=== PATIENT | male | born 1945 | race Caucasian/White ===

== ENCOUNTER 2016-12-17 01:52 | Day surgery (SDC) | payer OTHER ==
[~2016-12-17] VITALS: Ht 167.6 cm; Wt 83.6 kg
[2016-12-17] VITALS (14 sets, daily range): BP systolic 132–170; BP diastolic 56–130; PULSE 63–80; RESP 12–18; O2SAT 98
[~2016-12-17 01:52] MED LIST: ATOR40TA69 PO; CARV6.252 PO; DOCU-41 PO; FURO40TA4 PO; LISI-567 PO; SILD100T PO; SPIR25TA3 PO; WARF1TAB6 PO; WARF7.5T4 PO
[2016-12-17 08:32] LABS: BASOPHILS % (AUTO) 1.1 % (0-3); MONOCYTES % (AUTO) 12.1 % (4-12); Mean Corpuscular Hemoglobin 30.9 pg (27.0-35.0); Mean Corpuscular Volume 91.6 fL (81-100); NEUTROPHILS % (AUTO) 58.7 % (40-74); Platelet Count 195 bil/L (150-400)
[2016-12-17 08:46] LABS: INR 1.01 ratio
[2016-12-17] MEDS ORDERED: Heparin 10,000 Unit/1,000 mL NS Premix IV ONE (08:51)
[2016-12-17] MEDS ORDERED: Heparin 1,000 Unit/mL 10 mL Inj ONE (08:51)
[2016-12-17] MEDS ORDERED: Heparin 1,000 Units/500 mL NS Premix IV ONE (08:51)
[2016-12-17] MEDS ORDERED: Nitroglycerin 50,000 mcg/250 mL D5W Premix IV ONE (08:51)
[2016-12-17] MEDS ORDERED: fentaNYL-PF 50 mCg/mL 2 mL Inj ONE (09:40)
--- NOTE | 2016-12-17 11:39 | PCM.CVCATH ---
Cardiac Cath Report Date of Service Dec 17, 2016 Primary Indication Heart Failure. history of acute inferolateral RI in 2007 treated with 4V CABG. Procedure coronary angiography, left heart cath Vascular Access Right femoral artery using 5 Fr sheath, closure with manual hold. Diagnostic Catheters Left main: JL 4.0, 5 Fr RCA: JL 4.0, 5 Fr SVG grafts: JL4, 5Fr BUITRAGO graft: CARMEN, 5Fr Procedure Details Coronary angiography details: The patient was brought to the cardiac catheterization lab in the fasting state. Patient was laid supine on the cardiac catheterization table and the right groin was prepped and draped in the usual sterile fashion. One percent Xylocaine was infiltrated into the right femoral vessels. Next, a sheath was then placed in the right common femoral artery by the modified Seldinger technique. Guide wire was used to advance the catheter through the sheath and up into aortic sinuses. After coronary angiography and venous bypass grafts angiography were completed, the JR4 catheter was pulled into the aortic arch. Multiple attempts were made using the guide wire to find the subclavian artery but they failed. Vert catheter was then used to advance the guidewire into the subclavian artery and catheter was exchanged with JR4 catheter. JR4 catheter didn't engage the BUITRAGO graft and the catheter was exchanged for CARMEN catheter that successfully engaged the BUITRAGO graft. The J tip guide wire was advanced through the catheter ahead of the tip of the catheter and the guide wire along with the catheter were pulled together out of the sheath. Medications/Fluoro Time Medications administered: 1.Fentanyl: 50 mcg IV 2. Midazolam: 1 mg IV 3. Heparin: 3000 units IV Fluoroscopy Time: 22.5 minutes, 1105 mGy Contrast (Isovue): 90 mls Blood loss: 10 mls Findings 1) Coronary angiography: Right dominance a. Left main has ostial 20-25% stenosis b. LAD is normal caliber with 70% tubular stenosis proximally. There is a medium caliber first diagonal artery that has 80-85% tubular stenosis proximally. Competitive flow into the BUITRAGO is noted. c. LCx is normal caliber with 80-85% tubular stenosis proximally. The first obtuse marginal artery (OM1) has 60-70% stenosis. Retrograde filling of the SVG graft stub is noted from OM1. The OM2 branch has subtotal occlusion/ chronic total occlusion in the mid-vessel. d. RCA has chronic total occlusion proximally and LETICIA 1-2 flow in the mid vessel. There are left to right collaterals present. 2) Bypass angiography: a. BUITRAGO to the LAD is patent and without any significant angiographic disease. b. SVG to OM1 is occluded at the ostium c. SVG to OM2 is occluded proximally d. SVG to RCA is occluded at the ostium/proximally 3) Left Heart catheterization: a. LVEDP is minimally elevated at 16 mmHg. b. No significant transaortic gradient on catheter pull-back. 4) Right femoral artery angiography: right common femoral arteriotomy below the inferior hypogastric artery. Moderate luminal disease in the common femoral artery. Complications There were no periprocedural complications identified. Summary 1) Five vessel hoopa coronary artery disease (LAD, 1st diagonal, OM1, LCx, OM2 , RCA) present that appears similar to mildly worse than the disease noted on cath report 2006. 2) Bypass angiography: BUITRAGO graft is patent but all the three saphenous venous grafts are occluded. Recommendations Cardiac MRI to assess viability in the inferior and lateral collado and then consider PCI of the first diagonal and LCx and higher risk PCI of the OM2 and RCA. copies to: Stefanie Black MD, Bhrigu R MD Dec 17, 2016 11:39
--- NOTE | 2016-12-17 17:04 | NUR ---
Continued recovery of patient later this afternoon, following Jacobo Dahl RN earlier care. Heart cath recovery completed post 5 hour stay following a manual hold on the right femoral artery. Dressing was changed prior to D/C -for a very light ooze - site is soft and non-tender - site covered with a clear Opsite. Pt and understand discharge instructions. Office will contact patient for an cardiac MRI. Follow up scheduled with Dr Alcantar in Feb.
== END 2016-12-17 23:59 | disposition home or self-care (01) ==
LOC: SOUO 01:52
PROVIDERS: ATTEND Internal Medicine Cardiovascular Disease
DX: I50.20 Unspecified systolic (congestive) heart failure (principal); I25.810 Atherosclerosis of coronary artery bypass graft(s) without angina pectoris; I25.10 Atherosclerotic heart disease of native coronary artery without angina pectoris; Z95.1 Presence of aortocoronary bypass graft; I48.1 Persistent atrial fibrillation; I25.5 Ischemic cardiomyopathy; I10 Essential (primary) hypertension; E78.5 Hyperlipidemia, unspecified; Z79.01 Long term (current) use of anticoagulants; Z79.82 Long term (current) use of aspirin; I25.2 Old myocardial infarction
CPT/HCPCS: 36415; 80048; 80061; 85025; 85610; 93459; 99152; 99153; C1769; J1644; J2250; J3010; Q9967

== ENCOUNTER 2017-01-09 01:45 | Day surgery (SDC) | payer OTHER ==
[~2017-01-09] VITALS: Ht 167.6 cm; Wt 83.6 kg
[2017-01-09] VITALS (15 sets, daily range): BP systolic 141–188; BP diastolic 89–126; PULSE 58–86; RESP 12–24; O2SAT 94–98
[2017-01-09] MEDS ORDERED: 0.9% Sodium Chloride 1,000 ML IV SCH (06:30)
[2017-01-09 07:16] LABS: BASOPHILS % (AUTO) 1.1 % (0-3); EOSINOPHILS % (AUTO) 3.6 % (0-5); MONOCYTES % (AUTO) 12.2 % (4-12); Mean Corpuscular Volume 90.9 fL (81-100); Platelet Count 228 bil/L (150-400)
[2017-01-09 07:28] LABS: INR 1.04 ratio
[2017-01-09] MEDS ORDERED: Nitroglycerin 50,000 mcg/250 mL D5W Premix IV ONE (07:51)
[2017-01-09] MEDS ORDERED: Heparin 10,000 Unit/1,000 mL NS Premix IV ONE (07:51)
[2017-01-09] MEDS ORDERED: Heparin 1,000 Units/500 mL NS Premix IV ONE (07:51)
[2017-01-09] MEDS ORDERED: ASPI-973 PO (07:54)
[2017-01-09] MEDS ORDERED: Heparin 1,000 Unit/mL 10 mL Inj ONE (08:08)
--- NOTE | 2017-01-09 08:21 | NUR ---
DUNIA: Pt arrived to [facility] around 0640 for heart cath. IV X2 started, one in each hand, blood drawn and sent to lab per orders. IVF started per order. Afebrile, tele afib, BP elevated, pt states he gets "nervous" in hospital setting. at bedside. Both and pt state understanding of procedure and post procedure care. Taken to geophysical laboratory supervisor at 0820 for procedure in bed per geophysical laboratory supervisor staff.
[2017-01-09] MEDS ORDERED: fentaNYL-PF 50 mCg/mL 2 mL Inj ONE (08:27)
[2017-01-09] MEDS ORDERED: Atropine 1 mg/10 mL (Code) Syringe ONE (08:43)
[2017-01-09] MEDS ORDERED: Adenosine Inj 40 ML IV ONE (09:02)
[2017-01-09] MEDS ORDERED: 0.9% Sodium Chloride 100 ML ONE (09:03)
--- NOTE | 2017-01-09 10:10 | DI95 ---
[place] [id number] INTERVENTIONAL CARDIAC CATHETERIZATION PATIENT: WILL LOPEZ : 1945 MR#: [id number] ADMIT: 01/09/2017 JOB ID: [id number] DATE OF PROCEDURE: 01/09/2017 PATIENT PROFILE: The patient is a 71 years old male with history of coronary artery bypass surgery x5 in 2006 with all 4 saphenous vein grafts occluded. He has ischemic cardiomyopathy with ejection fraction of 25% to 30%. Recent viability testing demonstrated lateral ischemia. PROCEDURE: 1. Balloon angioplasty and stenting to the proximal circumflex artery. 2. Balloon angioplasty and stenting to the first diagonal branch. 3. Fractional flow reserve to the ramus intermedius. 4. Vascular closure device, Perclose. COMPLICATIONS: None. METHOD: Vascular access was obtained from the right groin under 1% lidocaine local anesthesia using a 6-Monegasque sheath. Heparin 9,000 units were given. A 6-Monegasque CLS 4 guide was advanced to the left coronary ostium. A run-through wire was placed inside the circumflex artery. The proximal circumflex artery lesion was pre-dilated with a 2.0 x 12 mm balloon. A Resolute Integrity 2.5 x 12 mm stent was placed inside the circumflex artery lesion and deployed at 12 atmospheres for 20 seconds. The run-through wire was then redirected into the first diagonal branch. The first diagonal branch lesion was pre-dilated with a 2.5 x 15 mm balloon. An NC 2.5 x 12 mm balloon was used to dilate this lesion. It was inflated up to 12 atmospheres. A Xience 2.5 x 15 mm stent was placed inside the diagonal branch lesion and deployed at 10 atmospheres for 30 seconds. An FFR wire was directed into the ramus intermedius. Adenosine was given infusion IV. FFR was measured at 0.92. Final angiogram was obtained. Right femoral angiogram was performed before sheath removal, hemostasis was achieved by using a Perclose device. The patient tolerated the procedure well. He was transferred to the [facility] in good condition. TOTAL CONTRAST USED: 85 cc. FLUOROSCOPY TIME: 5.5 minutes. RESULTS: 1. Successful balloon angioplasty and stenting to the proximal circumflex artery lesion by deploying one drug eluting stent (2.5 x 12 mm) to achieve an excellent angiographic result with LETICIA-3 flow distally. 2. Successful balloon angioplasty and stenting to the first diagonal branch lesion by deploying one drug eluting stent (2.5 x 15 mm) to achieve an excellent angiographic result with LETICIA-3 flow distally. 3. FFR of the ramus intermedius 0.92, which indicates nonhemodynamic significant stenosis. MTDD
[2017-01-09] MEDS ORDERED: Ondansetron 2 mg/mL 2 mL Inj IVPUSH PRN (10:50)
[2017-01-09] MEDS ORDERED: Atropine 1 mg/10 mL (Code) Syringe IVPUSH PRN (10:50)
[2017-01-09] MEDS ORDERED: 0.9% Sodium Chloride 400 ML (4 HRS) IV ONE (10:50)
[2017-01-09] MEDS ORDERED: Sodium Chloride LOK Flush 10 mL Syringe IVFLUSH PRN (10:50)
[2017-01-09] MEDS ORDERED: 0.9% Sodium Chloride 250 ML BOLUS IV PRN (10:50)
[2017-01-09] MEDS ORDERED: ATOR40TA69 PO (11:26)
[2017-01-09] MEDS ORDERED: CARV6.252 PO (11:26)
--- NOTE | 2017-01-09 11:30 | NUR ---
Post Cath: Pt arrived back to [facility] room 3 from medical laboratory manager at 0940, VSS on RA SpO2 94-98%. No c/o pain. ECG obtained, afib, IVF at 100 ml/hr per order. R groin with perclose with op-site dressing, no bleeding or hematoma, R pedal pulse palpable +1. at bedside and spoke with provider about procedure. Pt tolerating po intake free of nausea. Jessica Kunz RN given report and to assume care of pt. Addendum: 01/09/17 at 1143 by SIMON NORWOOD RN Small area of firmness in right groin present upon arrival from medical laboratory manager, per medical laboratory manager staff has been present, area has not changed during time in [facility], no pain at site per pt. Left groin has similar anatomy.
--- NOTE | 2017-01-09 11:36 | NUR ---
Care of patient assumed from Ari Whiting R.N. There is an approx 1 cm area under right groin puncture site that is firmer than surrounding tissue. Left groin has same type tissue. Per Ari, at handoff with seed analysis laboratory assistant this same firmness was noted, it has not changed, nor is it painful.Will continue to monitor.
--- NOTE | 2017-01-09 13:08 | NUR ---
Pt noted to be side lying with legs bent.I informed him that he is to remain flat wihout bending right leg until 14:00 hrs. Right groin stable.
--- NOTE | 2017-01-09 14:00 | NUR ---
Handoff to vinod Hugo R.N. right groin assessed together at bedside and it is unchanged.Pt may be off bedrest.
--- NOTE | 2017-01-09 17:04 | NUR ---
Patient D/C from [facility] on a Same day PCI. Right leg access site for heart cath has not changed. Noted at the end of recovery patient BP increased - feels "anxious" and wanted to go home. Dr Lott notified of BP - Patient OK to D/C home - no new orders. Instructed patient to follow BP readings at home and contact Dr Lott's office if his BP remained elevated. 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
== END 2017-01-09 23:59 | disposition home or self-care (01) ==
LOC: SOUO 01:45
PROVIDERS: ATTEND Internal Medicine Interventional Cardiology
DX: I25.10 Atherosclerotic heart disease of native coronary artery without angina pectoris (principal); I25.810 Atherosclerosis of coronary artery bypass graft(s) without angina pectoris; I50.20 Unspecified systolic (congestive) heart failure; Z95.1 Presence of aortocoronary bypass graft; Z79.01 Long term (current) use of anticoagulants; I48.1 Persistent atrial fibrillation; I25.5 Ischemic cardiomyopathy; I10 Essential (primary) hypertension; E78.5 Hyperlipidemia, unspecified
CPT/HCPCS: 36415; 80048; 85025; 85610; 93005; 93571; 99152; 99153; C1725; C1760; C1769; C1874; C1887; C9600; J0153; J1644; J2250; J3010; J7030; Q9967